=== PATIENT | male | born 1985 | race Caucasian/White ===

== ENCOUNTER 2024-09-24 19:00 | Emergency (ER) | payer OTHER, SELFPAY ==
--- NOTE | 2024-09-24 19:25 | XR_ITS ---
Examination: PA chest single view Technique: Upright PA chest single view Exam date and time: September 24, 2024 1943 hrs. Indications: Low O2 saturation difficulty breathing today. Findings: Mild prominence left ventricle Moderate vascular congestion Suspicious for subtle septal edema at the lung bases No lobar pneumonia Impression: Suspicious for early heart failure
--- NOTE | 2024-09-24 19:26 | EKG_ITS ---
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
--- NOTE | 2024-09-24 19:27 | PD.EDRME ---
Rapid Medical Screening Exam RME Arrival date/time: 09/24/24 19:00 39M with history of psych disorder and alcohol use presents to ED with SI. Patient's father recently committed suicide with a gun. Chief Complaint: Suicidal
[2024-09-24 19:28] VITALS: BP 153/87; PULSE 137; RESP 16; TEMP 37.2; O2SAT 89; BMI 30.2
--- NOTE | 2024-09-24 19:49 | PC.NURSE ---
Pt to room 4 at this time, assumed care of pt.
[2024-09-24 19:51] VITALS: BP 175/122; PULSE 134; RESP 20; O2SAT 96
[2024-09-24 19:52] VITALS: PULSE 120; RESP 20; RESP 95
--- NOTE | 2024-09-24 20:03 | PD.EDSUICD ---
ED Psych RME/HPI General Chief Complaint: Suicidal Stated Complaint: DANGER TO SELF GRAVELY DISABLED Time Seen by Provider: 09/24/24 20:02 Arrival date/time: 09/24/24 19:00 RME / HPI RME / HPI Narrative: 09/24/24 19:00 39M with history of psych disorder and alcohol use presents to ED with SI. Patient's father recently committed suicide with a gun. This section includes all my notes and documentations, including HPI, PE, and ED course. Betito Rodriguez MD HPI: 39-year-old male here to be evaluated with suicidal risk. Patient can't give history due to severe alcohol intoxication. The story is from the who is present. His father killed himself with a gun about a year ago. Ever since, patient hasn't doing well mentally. Drinking heavily. Prior to 09/12/2024, he didn't drink for several weeks. But starting 09/12/2024, he has been drinking heavily daily. In the past few days, reports some minimal oral intake and repeated vomiting. No obvious hematemesis or coffee-ground emesis. No abdominal pain. No homicidal ideation. No hallucinations. ROS: Can't obtain from the patient due to current clinical condition. Physical Exam: General: Alert and severely intoxicated. Eyes: Conjunctivae and lids clear. EOMI. PERRL. ENT: No nasal congestion. Neck: Supple. Heart: Sinus tachycardia noted. Lungs: No respiratory distress. Good air movement. No rhonchi, wheezing, rales. Abdomen: Soft and nontender. Normal bowel sounds. No distension. No rebound or guarding. Legs: No clubbing, cyanosis, edema. Skin: Warm and dry. Neuro: Alert. Cranial Nerves II-XII grossly intact. No peripheral motor deficits. I reviewed all diagnostic test results. My interpretation of the EKG is sinus rhythm with nonspecific ST-T changes. My interpretation of the chest x-ray is no acute findings. Blood tests and urine tests remarkable for Hgb 21.6, LA 2.6, CK 500, and serum alcohol 379. At this point, diagnoses include severe alcohol intoxication and dehydration and rhabdomyolysis and suicidal risk. Treatment here included IV fluid and Zofran and Thiamine and Ativan and Metoprolol. At 0600 on 09/25/24, the care of the patient was transferred to Dr. Davison. Betito Rodriguez MD Related Data Allergies Allergy/AdvReac Type Severity Reaction Status Date / Time No Known Allergies Allergy Verified 09/24/24 19:06 Course Quality Measures none Orders Category Date Time Status 1799 Psychiatric Hold NOW Care 09/25/24 05:30 Ordered EKG (ED ONLY) *Do not use* NOW Care 09/24/24 19:26 Completed Saline [Insert IV] NOW Care 09/24/24 20:10 Completed Straight [In and Out Catheter] X1 Care 09/24/24 20:10 Active EKG (ED Only) Stat Exams 09/24/24 19:26 Draft XR chest 1V portable Stat Exams 09/24/24 19:25 Completed Acetaminophen Stat Lab 09/24/24 19:55 Completed Alcohol, Blood Medical Stat Lab 09/24/24 19:55 Completed Amylase Stat Lab 09/24/24 19:55 Completed B-Type Natriuretic Peptide Stat Lab 09/24/24 19:55 Completed CBC Stat Lab 09/24/24 19:55 Completed Comprehensive Metabolic Panel Stat Lab 09/24/24 19:55 Completed Creatine Kinase Stat Lab 09/24/24 19:55 Completed Drug Screen,Urine Stat Lab 09/24/24 19:26 Ordered Lactate (Lactic Acid) Stat Lab 09/24/24 19:55 Completed Lactic Acid, 3 HR Stat Lab 09/24/24 23:37 Completed Lipase Stat Lab 09/24/24 19:55 Completed Magnesium Stat Lab 09/24/24 19:55 Completed Procalcitonin Stat Lab 09/24/24 19:55 Completed Salicylate Stat Lab 09/24/24 19:55 Completed Troponin I Stat Lab 09/24/24 19:55 Completed Urinalysis Stat Lab 09/24/24 19:26 Ordered LORazepam [Ativan Inj] Med 09/24/24 20:10 Discontinued 2 mg IVP X1 ONE LORazepam [Ativan Inj] Med 09/25/24 00:29 Discontinued 2 mg IVP X1 ONE Metoprolol Tartrate Inj [Lopressor Inj] Med 09/24/24 20:12 Discontinued 5 mg IVP X1 ONE Ondansetron Inj [Zofran Inj] Med 09/24/24 20:10 Discontinued 4 mg IV X1 ONE Sodium Chloride 0.9% 1000 ml [Ns] 1,000 ml Med 09/24/24 20:10 Discontinued IV 999 mls/hr Sodium Chloride 0.9% 1000 ml [Ns] 1,000 ml Med 09/24/24 21:00 Discontinued IV 999 mls/hr Thiamine Inj [Vitamin B-1 Inj] 100 mg Med 09/24/24 20:11 Discontinued Sodium Chloride 0.9% [Ns] 100 ml IV X1 Oxygen Delivery NOW RT 09/24/24 19:27 Active Vital Signs Vital signs: Vital Signs Temperature 99 F 09/24/24 19:28 Pulse Rate 137 H 09/24/24 19:28 Respiratory Rate 16 09/24/24 19:28 Blood Pressure 153/87 H 09/24/24 19:28 Pulse Oximetry (%) 89 L 09/24/24 19:28 Oxygen Delivery Method Room Air 09/24/24 19:28 Psych Patient data External records reviewed:: [facility] previous records Clinical information provided by:: spouse Social determinants that could affect healthcare access:: alcohol use Patient has the following chronic illnesses:: Alcohol abuse How is presenting disease/condition affected by chronic disease/condition?: exacerbated by Evaluation data The following diagnostics were reviewed and interpreted by me:: lab results, radiology exam(s) and EKG tracing(s) (My interpretation of the EKG is: Sinus tachycardia (126 bpm) with nonspecific ST-T changes. Betito Rodriguez MD) Lab and/or radiology exams considered but not ordered:: None Interpretation Summary: Alcohol intoxication and suicide risk Medications / Prescriptions Medications or Prescriptions considered but not ordered:: None Medication administrations:: Medication Administration History Discontinued Medications Sodium Chloride (Ns) 1,000 mls @ 999 mls/hr IV .Q1H1M ONE Stop: 09/24/24 21:10 Last Infusion: 09/24/24 21:23 Dose: Infused Documented By: Admin: 09/24/24 20:21 Dose: 999 mls/hr Documented By: JENNIFER Thiamine HCl 100 mg/ Sodium (Chloride) 101 mls @ 202 mls/hr IV X1 ONE Stop: 09/24/24 20:40 Last Infusion: 09/24/24 20:51 Dose: Infused Documented By: Admin: 09/24/24 20:21 Dose: 202 mls/hr Documented By: JENNIFER Sodium Chloride (Ns) 1,000 mls @ 999 mls/hr IV .Q1H1M ONE Stop: 09/24/24 22:00 Last Infusion: 09/24/24 21:11 Dose: Infused Documented By: Admin: 09/24/24 21:11 Dose: 999 mls/hr Documented By: KG Lorazepam (Lorazepam 2 Mg/Ml Vial) 2 mg IVP X1 ONE Stop: 09/24/24 20:11 Last Admin: 09/24/24 20:22 Dose: 2 mg Documented By: GB Lorazepam (Lorazepam 2 Mg/Ml Vial) 2 mg IVP X1 ONE Stop: 09/25/24 00:30 Last Admin: 09/25/24 00:50 Dose: 2 mg Documented By: GB Metoprolol Tartrate (Metoprolol Tartrate Inj 1 Mg/Ml Amp 5 Ml) 5 mg IVP X1 ONE Stop: 09/24/24 20:13 Last Admin: 09/24/24 20:22 Dose: 5 mg Documented By: GB Ondansetron HCl (Ondansetron Inj 2 Mg/Ml Inj 2 Ml) 4 mg IV X1 ONE; Protocol Stop: 09/24/24 20:11 Last Admin: 09/24/24 20:21 Dose: 4 mg Documented By: GB See chart Consultations Consultation(s) initiated? (list below): No Diagnosis Psych Differential Diagnosis: acute psychosis, suicidal ideation, bipolar disorder, depression, drug-induced psychotic disorder and acute anxiety Most likely diagnosis given after review of the tests above:: Alcohol intoxication and suicidal Admission Indicated Admission indicated?: not indicated Explain why admission is indicated or not indicated:: Psychiatric evaluation pending Admission Request Was there a request for admission?: No Disposition Plan Disposition Plan: other (specify) (Psychiatric evaluation pending) Discharge Plan Prescriptions/Referrals Referrals: Imer Leonardo MD [Primary Care Provider] - In 1 week Problem List Clinical Impression: Suicide risk, Alcohol intoxication Patient/Caregiver Discharge Instructions Print Language: Slovenian
[2024-09-24 20:10] LABS: Lactate (Lactic Acid) 3.1 mMol/L (0.4-2.0)
[2024-09-24 20:12] LABS: Basophils % (Auto) 0 % (0-2.5); Eosinophils % (Auto) 1 % (0-10); Immature Granulocytes % (Auto) 0 % (0-0); Lymphocytes % (Auto) 31 % (10-50); Mean Corpuscular Volume 82 fL (80-100); Monocytes # (Auto) 0.6 Thou/mm3 (0.0-0.8); Monocytes % (Auto) 7 % (0-12); Nucleated Red Blood Cell % 0 /100 WBC (0)
[2024-09-24 20:13] LABS: Hematocrit 58.1 % (41.0-53.0); Immature Granulocytes Auto 0.03 Thou/mm3 (0.00-0.00); Lymphocytes # (Auto) 2.6 Thou/mm3 (1.0-4.8); Mean Corpuscular HGB Conc 37.2 g/dl (31.0-37.0); Mean Corpuscular Hemoglobin 30.5 pg (25.0-35.0); Neutrophils % (Auto) 61 % (37-80); Platelet Count 267 Thou/mm3 (140-440); RDW Standard Deviation 37.7 fL (35.1-43.9); Red Blood Count 7.08 Miln/mm3 (4.50-5.90); White Blood Count 8.2 Thou/mm3 (3.8-10.6)
[2024-09-24 20:16] LABS: Hemoglobin 21.6 g/dL (13.5-16.0)
[2024-09-24] MEDS: ONDANSETRON INJ 2 MG/ML INJ 2 ML 4 MG IV (20:21)
[2024-09-24] MEDS: THIAMINE INJ 100 MG in SODIUM CHLORIDE 0.9% 100 ML 202 MG IV (20:21)
[2024-09-24] MEDS: SODIUM CHLORIDE 0.9% 1000 ML 1,000 ML 999 ML IV ×2 (20:21→21:11)
[2024-09-24 20:22] VITALS: BP 173/127; PULSE 117
[2024-09-24] MEDS: LORazepam 2 MG/ML VIAL IVP (20:22)
[2024-09-24] MEDS: METOPROLOL TARTRATE INJ 1 MG/ML AMP 5 ML 5 MG IVP (20:22)
--- NOTE | 2024-09-24 20:25 | PC.NURSE ---
Pt in room on [facility] with at the bedside. poultry inseminator Alex informed of chief complaint of suicidal ideation with plan and access to method at home.
[2024-09-24 20:40] LABS: B-Type Natriuretic Peptide < 20 pg/mL (0-100)
[2024-09-24 20:45] LABS: Acetaminophen < 2.0 mcg/mL (10.0-20.0); Alanine Aminotransferase 54 U/L (10-49); Albumin, Serum 5.2 gm/dL (3.5-5.0); Albumin/Globulin Ratio 1.9 (1.2-2.2); Alcohol, Blood Medical 379.3 mg/dL (0-10.0); Alkaline Phosphatase 50 U/L (46-116); Anion Gap 13 (7-16); Aspartate Amino Transferase 47 U/L (0-34); BUN/Creatinine Ratio 8 Ratio (12-20); Bilirubin,Total 0.7 mg/dL (0.3-1.2); Blood Urea Nitrogen 11 mg/dL (9-23); Calcium 9.2 mg/dL (8.3-10.6); Calcium (Corrected) 9.2 mg/dL (8.5-10.1); Carbon Dioxide 24.5 mMol/L (20.0-31.0); Chloride 103 mMol/L (98-107); Creatine Kinase 500 U/L (34-171); Creatinine (Component) 1.3 mg/dL (0.6-1.3); Estimated Creatinine Clearance 85.9 mL/min (>60); Globulin 2.8 gm/dL (2.3-3.5); Glucose 152 mg/dL (74-106); Osmolality,Calculated 281 (275-295); Potassium 4.4 mMol/L (3.4-5.1); Procalcitonin 0.09 ng/ml (0.0-0.49); Salicylate < 3.0 mg/dL; Sodium 140 mMol/L (136-145); Troponin I < 0.020 ng/mL (0.0-0.045); eGFR > 60 See Note
[2024-09-24 20:49] VITALS: BP 157/105; PULSE 87; RESP 20; O2SAT 93
[2024-09-24 20:55] LABS: Amylase 111 U/L (30-118); Lipase 68 U/L (12-53); Magnesium 2.4 mg/dL (1.6-2.6)
[2024-09-24 20:59] VITALS: PULSE 85; RESP 16; RESP 92
--- NOTE | 2024-09-24 21:58 | PC.NURSE ---
Pt moved to room 7 at this time.
[2024-09-24 23:06] LABS: Reflex Lactate? Y
[2024-09-24 23:45] LABS: Lactic Acid, 3 HR 2.6 mMol/L (0.4-2.0)
[2024-09-25] VITALS (8 sets, daily range): BP systolic 124–168; BP diastolic 79–106; PULSE 85–105; RESP 17–19; TEMP 36.3–37.2; O2SAT 95–97
[2024-09-25] MEDS: LORazepam 2 MG/ML VIAL IVP ×2 (00:50→20:33)
[2024-09-25 05:41] LABS: Collection Type, Urine Clean Catch; Squamous Epithelial Cell,Urine 0 /hpf (0-5)
[2024-09-25 06:19] LABS: Bilirubin,Urine Negative (Negative); Blood,Urine Negative (Negative); Clarity,Urine Clear (Clear/Hazy); Color,Urine Yellow (Lt Yel-Yel); Glucose, Urine Trace (Negative); Ketones,Urine Negative (Negative); Leukocyte Esterase,Urine Negative (Negative); Nitrite,Urine Negative (Negative); Protein,Urine 2+ (Neg - Trace); RBC,Urine 4 /hpf (0-3); Specific Gravity,Urine 1.025 (1.001-1.035); Urobilinogen,Urine Negative mg/dL (0.0-1.0); WBC,Urine 1 /hpf (0-5)
[2024-09-25 06:26] LABS: Amphetamine/Methamp Scrn,U Negative (Negative); Barbiturate Screen,Urine Negative (Negative); Benzodiazepines Screen,Urine Negative (Negative); Benzoylecgonine Screen, Ur Negative (Negative); Fentanyl Screen,Urine Negative (Negative); Opiate Screen,Urine Negative (Negative); THC Screen,Urine Negative (Negative)
[2024-09-25] MEDS: ONDANSETRON INJ 2 MG/ML INJ 2 ML 8 MG IV (07:37)
--- NOTE | 2024-09-25 07:43 | PC.NURSE ---
PATIENT WITH COMPLAINT OF NAUSEA AND VOMITING. PATIENT ASKING CONTINUAL TO CALL . SALES MARKETING DIRECTOR AWARE OF PATIENT REQUESTS. PATIENT OUT OF ROOM NOT FOLLOWING RE-DIRECTION AT THIS TIME. NURSE WAS ABLE TO GET PATIENT TO RETURN TO ROOM AND REST. SITTER AT BEDSIDE.
[2024-09-25] MEDS: HALOPERIDOL LACT INJ 5 MG/ML VIAL IM (08:05)
--- NOTE | 2024-09-25 08:09 | PD.EDADDENDU ---
Emergency Room Addendum Addendum Narrative: Care is transitioned from Dr. Rodriguez. Patient is intoxicated. Awaits medical clearance. 1045 Patient is alert and oriented and normally conversive. From my standpoint, patient is stable and cleared for psychiatric placement or evaluation. He did not endorse any SI to me.
--- NOTE | 2024-09-25 09:54 | PC.CC ---
Addendum entered by Escobar Dwyer II 09/25/24 18:00: Clinical inquiry created and sent to the following [facility] facilities: [facility]-Call to pts to provide update, that pt will remain on 5150 hold. Pts in agreement with plan. 1504-ASW spoke with Lety, housekeeper cleaning cooking with [facility], packet to be re-faxed. 1641-Call from Dr. Hernández with [facility], per Dr. Hernández he does not believe pt meets criteria for 5150 hold, as he was inebriated when he made the suicidal statements. Dr. Hernández states that pt will need full psychiatric evaluation, with detailed information regarding pts mental status. [facility] reason for need for transfer for stabilization in appropriate setting. [facility] Dr[facility] Hern[facility]dez [facility]. ASW met with pt at bedside to. ASW informed pt that he is on 5150 hold due to DTS and GD. ASW explained that due to concerns for his safety decision was made to detain pt. Pt expressed understanding. Pt requesting to speak with his . 1709-ASW made contact with pts Clementina, who is in agreement to speak with pt at this time. Original Note: Pt Lobo Erwin is a 39 yr old male to ED for pt being extremely intoxicated and making SI statements. From staff documentation pt has access to fire arms with intent to harm himself. From provider documentation pts father committed suicide 1 yr ago. Pt has been in decline since with excessive drinking. At this time pt is pending medical clearance, still presenting intoxicated. Plan will be for ASW to make contact with pts to collect collateral information.
[2024-09-25] MEDS: PANTOPRAZOLE 40 MG TABLET PO ×2 (13:35→19:41)
--- NOTE | 2024-09-25 15:51 | PC.CC ---
Pt Lobo Erwin is a 39 yr old male to ED for heavy alcohol intoxication and suicidal statements. Pt placed on 1798. Pts scored 20/25 on Montcalm Scale and positive tox screen for alcohol. ASW met with pt at bedside, introducing self and role in pt care. ASW explained reason for encounter. Pt expressed understanding and is agreeable to meet with ASW at this time. Pt presents with flat affect, appeared disengaged, by asking ASW to speak with his about assessment questions and providing minimal information. Pt failed to make any eye contact for duration of encounter. Pt speaks in clear even tone. Pt confirms drinking heavily prior to arrival in ED. Pt states that the suicidal comments he made were because of his heavy intoxication. Per pt at this time he is not endorsing SI/HI. Pt is denying any A/V hallucinations. Pt endorses hx of bipolar disorder, dx at [facility], unknown when. Pt reports having been placed on several medications, but states none of them helped and had too many side effects. At this time pt states it has been sometime since he has seen a therapist/psychiatrist. Pt reports hx of heavy drinking, which has increased over the last few weeks. Pt reports having a lot of situational stressors in his life. Pt reports his mother from terminal cancer, with his father committing suicide just over a year ago. 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 Pt reports time of sobriety before and after his mothers passing and for a while after his fathers passing. Pt reports he does not feel his drinking is in relation to his grief and loss. Pt reports having access to firearms, but denies SI at this time. Pt denies ever being on 5150 hold and no previous psychiatric hospitalization. Pt has given verbal consent for ASW to speak with his . Collateral: 1138-ASW made contact with pts Clementina Erwin [phone]. ASW introduced self and role in pt care. Pts agreeable to speak with ASW at this time. Pts confirmed events that occurred leading to pt coming to ED for evaluation. Pts expressed concerns that pts drinking has gotten out of control. Pts states that pt was able to maintain sobriety for a period of time after the passing of his mother and even after pts fathers suicide. Per pts pt began excessively drinking around Day. Per pts , she feels pts current mental status could be a combination of his parents deaths and existing hx of mental health issues. Per pts pt has not been in MH services in over 2 months. She was recently able to secure a new psychologist for pt with appointment pending for 10/11/24. Pts expressed possible manipulative behaviors when pt is in treatment, as pt denies having any concerns. Pts did express concerns that pt has access to fire arms, and is the only one with combination access to three gun safes in their home. Pts expressed concerns of being able to keep pt safe, due to his growing dependence on alcohol. Per pts she has been working to get pt engaged in services for AOD concerns. [facility] contacted [facility] pt declined, starting he did not have the time. Pts expressed concerns for pts safety. 1204-Call to Lolly Fajardo, pt to be placed on hold at this time. ASW spoke with ED attending to inform him that pt will be kept on [address] Davison in agreement.
[2024-09-25] MEDS: LORazepam 0.5 MG TABLET 2 MG PO (18:05)
--- NOTE | 2024-09-25 18:24 | PC.NURSE ---
PATIENT WITH INCREASE IN ANXIETY, PATIENT COMPLAINT OF SHAKING, REQUESTING MEDICATION. SYSTEMS DESIGNER SPOKE WITH PROVIDER FOR MEDICATION. PATIENT ON PHONE WITH APPROVED BY SYSTEMS DESIGNER. PATIENT CONTINUES TO STAY CALM. SITTER REMAINS AT BEDSIDE.
--- NOTE | 2024-09-25 20:00 | PC.NURSE ---
Pt pacing back and forth in room, stated, I fell anxious Dr. Rodriguez made aware, new order given to this nurse
[2024-09-26] VITALS (9 sets, daily range): BP systolic 139–177; BP diastolic 80–106; PULSE 70–97; RESP 16–19; TEMP 36.3–37.1; O2SAT 95–99
--- NOTE | 2024-09-26 03:00 | PC.NURSE ---
Pt clam at this time, easily to wake, not c/o of any discomfort, Pt given water. [address]
--- NOTE | 2024-09-26 04:00 | PC.NURSE ---
Pt taken to bathroom, back to room without incident. Pt not c/o of any discomfort. 1on[address].
--- NOTE | 2024-09-26 05:20 | PD.EDADDENDU ---
Emergency Room Addendum Addendum Narrative: I took over the care from Dr. Davison at 6 PM on 09/25/2024. During my watch, the patient remained stable. Waiting for placement for suicide risk. At 6 AM on 09/26/2024, the care of the patient was transferred to Dr Avina. Betito Rodriguez MD
--- NOTE | 2024-09-26 06:34 | EDNOTE_ITS ---
Emergency Room Addendum <Gwendolyn Escobar - Last Filed: 09/26/24 10:43> Addendum Narrative: [address] Rodriguez, the previous shift emergency physician. Past medical, surgical, social and family history reviewed. Vitals and home medications reviewed. Results and treatment plan discussed. The patient was placed in ED observation care at 0600 09/26/2024, pending placement to [facility] facility Please refer to the emergency department record for history and examination.? While in ED observation the pt will have access to water, food, and personal hygiene. If the pt takes home medication(s), they will be continued in ED observation. <Juany Greer - Last Filed: 09/26/24 17:27> Addendum Narrative: [address] Rodriguez, the previous shift emergency physician. Past medical, surgical, social and family history reviewed. Vitals and home medications reviewed. Results and treatment plan discussed. The patient was placed in ED observation care at 0600 09/26/2024, pending placement to [facility] facility Please refer to the emergency department record for history and examination.? While in ED observation the pt will have access to water, food, and personal hygiene. If the pt takes home medication(s), they will be continued in ED observation. 1800: Patient was signed out to Dr. Rodriguez. Past medical, surgical, social and fa zhanna history reviewed. Vitals and home medications reviewed. Results and treatment plan discussed. They will assume the care of the patient at this time and will follow the patient, pending psychiatric placement.
--- NOTE | 2024-09-26 07:23 | PC.NURSE ---
PT RESTING IN BED IN NO APPARENT DISTRESS. RESPIRATIONS EVEN AND UNLABORED. SITTER AT BEDSIDE
--- NOTE | 2024-09-26 08:00 | PC.CC ---
Pt Lobo Erwin is a 39 yr old male on 5150 hold for DTS.GD, and is pending placement at this time. Updated clinical packet forwarded to the following LPS facilities for review and potential acceptance. Overnight no calls received from LPS facilities. [facility] [place] [facility]
[2024-09-26] MEDS: PANTOPRAZOLE 40 MG TABLET PO ×2 (09:50→20:48)
--- NOTE | 2024-09-26 12:17 | PC.NURSE ---
pt requesting something for anxiety. informed Dr Avina. new orders received
[2024-09-26] MEDS: DiphenhydrAMINE 25 MG CAPSULE 50 MG PO (12:27)
--- NOTE | 2024-09-26 20:42 | PC.NURSE ---
Pt requesting something to help him sleep. Dr. Rodriguez notified.
[2024-09-26] MEDS: LORazepam 2 MG/ML VIAL IVP (20:49)
--- NOTE | 2024-09-26 22:41 | PC.NURSE ---
Received phone call from Rosa turner, spoke to Augustine. Updated information given. He will speak to MD to see if they can accept the patient.
--- NOTE | 2024-09-27 00:41 | PC.NURSE ---
SING FROM [facility] CALLED AND THIS PT IS NOT ACCEPTED TO THEIR FACILITY DUE TO LAB LEVELS. PRIMARY RN JANESSA MADE AWARE.
[2024-09-27 05:57] VITALS: BP 124/80; PULSE 87; RESP 17; TEMP 36.9; O2SAT 96
--- NOTE | 2024-09-27 06:14 | PD.EDADDENDU ---
Emergency Room Addendum Addendum Narrative: I took over the care from Dr. Agustin at 6 PM on 09/26/2024. He remained stable during my watch. He was given Ativan to help him sleep. At 6 AM on 09/27/2024, the care of the patient was transferred to Dr Avina. Betito Rodriguez MD
--- NOTE | 2024-09-27 07:14 | PD.EDADDENDU ---
Emergency Room Addendum <Gwendolyn Escobar - Last Filed: 09/27/24 13:08> Addendum Narrative: [address] Rodriguez, the previous shift emergency physician. Past medical, surgical, social and family history reviewed. Vitals and home medications reviewed. Results and treatment plan discussed. The patient was placed in ED observation care at 0600 09/27/2024, pending LPS facility placement. Please refer to the emergency department record for history and examination.? While in ED observation the pt will have access to water, food, and personal hygiene. If the pt takes home medication(s), they will be continued in ED observation. One facility was requesting repeat lab work. The polythenia was a result of the patient being drunk and dehydrated. Today the patient has been eating and drinking. Repeat HGB today improved from 21 to 18. <Juany Greer - Last Filed: 09/27/24 17:44> Addendum Narrative: [address] Rodriguez, the previous shift emergency physician. Past medical, surgical, social and family history reviewed. Vitals and home medications reviewed. Results and treatment plan discussed. The patient was placed in ED observation care at 0600 09/27/2024, pending LPS facility placement. Please refer to the emergency department record for history and examination.? While in ED observation the pt will have access to water, food, and personal hygiene. If the pt takes home medication(s), they will be continued in ED observation. One facility was requesting repeat lab work. The polythenia was a result of the patient being drunk and dehydrated. Today the patient has been eating and drinking. Repeat HGB today improved from 21 to 18. 1800: Patient was signed out to Dr. Randle. Past medical, surgical, social and family history reviewed. Vitals and home medications reviewed. Results and treatment plan discussed. They will assume the care of the patient at this time and will follow the patient, pending psychiatric placement.
--- NOTE | 2024-09-27 07:32 | PC.CC ---
Addendum entered by Escobar Dwyer II 09/27/24 18:17: ASW requested updated labs CBC/CMP to aide in placement. Updated clinical packet has been faxed to address list 7 and 9 for hard printer. Updated packet uploaded to [email or web address]. [facility] remains in queue [facility] remains in queue [facility]-no answer [facility]-in queue [facility]-no beds, in queue [place]-in queue [facility]-in queue [facility]-no bed [facility]-no answer ASW met with pt at bedside to provide update. Pt informed that pf hold expiring with plan to re-evaluate. Pt expressed desire to return home. Pt states he has an appointment scheduled with a [facility] psychologist for 10/11/24 for intake assessment. Pt has expressed interest to engage in AOD services with [facility]. ASW provided pt with books to read at this time. 1826-ASW spoke with pts to provide update and current status on placement efforts. Per pts she has been in communication with in [place] and program is willing to accept pt. Per pts pt has expressed to her his desire to engage in AOD services. Pts states that she will await SS call for next step in process. Original Note: Pt Lobo Erwin is a 39 yr old male to ED for SI. Pt was heavily intoxicated and was stating that he wanted to blow his head off. Pt does have access to firearms. Pt reports hx of bipolar disorder-pending evaluation with new psychologist on 10/11/2024. Pt is a a daily drinker, which per pt and his has increased in recent weeks to pt consuming heavy alcohol. At this time pt is pending placement in LPS facility. At this time no LPS facility has accepted. In meeting with pt on 09/26/24, pt is requesting re-evaluation.
[2024-09-27] MEDS: PANTOPRAZOLE 40 MG TABLET PO ×2 (07:55→20:25)
--- NOTE | 2024-09-27 08:46 | PC.NURSE ---
Sister called to speak with patient. Patient was provided with a phone to communicate with her.
[2024-09-27 10:22] VITALS: BP 147/104; PULSE 99; RESP 18; TEMP 36.7; O2SAT 96
[2024-09-27] MEDS: DiphenhydrAMINE 25 MG CAPSULE 50 MG PO (11:11)
[2024-09-27 11:33] LABS: Basophils % (Auto) 1 % (0-2.5); Eosinophils # (Auto) 0.1 Thou/mm3 (0.0-0.5); Eosinophils % (Auto) 2 % (0-10); Hematocrit 50.2 % (41.0-53.0); Immature Granulocytes % (Auto) 0 % (0-0); Immature Granulocytes Auto 0.01 Thou/mm3 (0.00-0.00); Lymphocytes # (Auto) 1.5 Thou/mm3 (1.0-4.8); Lymphocytes % (Auto) 27 % (10-50); Mean Corpuscular HGB Conc 35.9 g/dl (31.0-37.0); Mean Corpuscular Hemoglobin 30.5 pg (25.0-35.0); Mean Corpuscular Volume 85 fL (80-100); Monocytes # (Auto) 0.7 Thou/mm3 (0.0-0.8); Monocytes % (Auto) 13 % (0-12); Neutrophils # (Auto) 3.1 Thou/mm3 (1.8-7.7); Neutrophils % (Auto) 57 % (37-80); Nucleated Red Blood Cell % 0 /100 WBC (0); Platelet Count 160 Thou/mm3 (140-440); RDW Standard Deviation 37.7 fL (35.1-43.9); White Blood Count 5.4 Thou/mm3 (3.8-10.6)
[2024-09-27 11:49] LABS: Alanine Aminotransferase 73 U/L (10-49); Albumin, Serum 4.7 gm/dL (3.5-5.0); Albumin/Globulin Ratio 1.9 (1.2-2.2); Alkaline Phosphatase 51 U/L (46-116); Anion Gap 7 (7-16); Aspartate Amino Transferase 75 U/L (0-34); BUN/Creatinine Ratio 12 Ratio (12-20); Bilirubin,Total 1.1 mg/dL (0.3-1.2); Blood Urea Nitrogen 15 mg/dL (9-23); Calcium 9.6 mg/dL (8.3-10.6); Calcium (Corrected) 9.6 mg/dL (8.5-10.1); Carbon Dioxide 25.7 mMol/L (20.0-31.0); Chloride 102 mMol/L (98-107); Creatinine (Component) 1.3 mg/dL (0.6-1.3); Estimated Creatinine Clearance 85.9 mL/min (>60); Globulin 2.5 gm/dL (2.3-3.5); Glucose 95 mg/dL (74-106); Osmolality,Calculated 270 (275-295); Potassium 4.2 mMol/L (3.4-5.1); Sodium 135 mMol/L (136-145); Total Protein 7.2 gm/dL (5.7-8.2); eGFR > 60 See Note
[2024-09-27 12:06] VITALS: BP 147/103; PULSE 86; RESP 18; TEMP 36.7; O2SAT 97
[2024-09-27 16:04] VITALS: BP 145/103; PULSE 93; RESP 18; TEMP 36.6; O2SAT 95
[2024-09-27 18:28] VITALS: BP 146/102; PULSE 99; RESP 18; TEMP 36.9; O2SAT 96
--- NOTE | 2024-09-27 19:45 | PC.NURSE ---
PT GIVEN OPPORTUNITY TO TAKE SHOWER, TOILETRIES PROVIDED. 1:1 SITTER ACCOMPANIED PT. PT RETURNED TO ROOM WITH OUT ANY INCIDENT. PT CALM AND COOPERATIVE.
[2024-09-27 21:56] VITALS: BP 146/100; PULSE 90; RESP 17; TEMP 37.1; O2SAT 96
--- NOTE | 2024-09-27 21:58 | PD.EDADDENDU ---
Emergency Room Addendum Addendum Narrative: 1800: Care assumed from Dr. Avina, the previous shift emergency physician. Past medical, surgical, social and family history reviewed. Vitals and home medications reviewed. Results and treatment plan discussed. I will assume the care of the patient at this time and will follow the patient, pending 5150 psychiatric placement. Please refer to the emergency department record for history and examination. Patient was placed in observation for treatment and monitoring of psychiatric symptoms, at 1800 09/27/2024. Symptoms consist of suicidal ideation and depression. Treatment plan includes psychiatric consult, reassessments, and possible placement into psychiatric facility. The patient had access and provided personal hygiene, shower, food, water, and daily medications. 0600: Care signed out to the next oncoming provider. Past medical, surgical, social and family history reviewed. Vitals and home medications reviewed. Results and treatment plan discussed. They will assume the care of the patient at this time and will follow the patient, pending 5150 psychiatric placement. At this time, observation has ended.
--- NOTE | 2024-09-27 23:50 | PC.NURSE ---
PT AWAKE AND REQUESTING SOMETHING FOR HEADACHE AND SLEEPING AID. DR LUONG INFORMED. NEW ORDERS GIVEN.
[2024-09-28] MEDS: IBUPROFEN TAB 600 MG TABLET PO (00:28)
[2024-09-28] MEDS: ACETAMINOPHEN 500 MG TABLET 1000 MG PO (00:29)
[2024-09-28] MEDS: DiphenhydrAMINE 25 MG CAPSULE 50 MG PO (00:29)
[2024-09-28 03:01] VITALS: BP 142/87; PULSE 85; RESP 18; TEMP 36.9; O2SAT 98
[2024-09-28 06:17] VITALS: BP 131/91; PULSE 91; RESP 18; TEMP 37.2; O2SAT 98
--- NOTE | 2024-09-28 06:18 | EDNOTE_ITS ---
Emergency Room Addendum Addendum Narrative: [address] Randle, the previous shift emergency physician. Past medical, surgical, social and family history reviewed. Vitals and home medications reviewed. Results and treatment plan discussed. The patient was placed in ED observation care at 0600 09/28/2024, pending [facility] facility placement. Please refer to the emergency department record for history and examination.? While in ED observation the pt will have access to water, food, and personal hygiene. If the pt takes home medication(s), they will be continued in ED observation. 0845: Patient was reassessed by ASW today. Report they were able to safety plan with patient and . Report he has an appointment scheduled at the [place] 10/11/2024. Observation care ended at this time. Patient remains clinically stable throughout the emergency department visit. Strict return precautions were outlined. Patient was discharged in stable condition.
--- NOTE | 2024-09-28 08:30 | PC.NURSE ---
breakfast tray provided.
[2024-09-28] MEDS: PANTOPRAZOLE 40 MG TABLET PO (08:34)
--- NOTE | 2024-09-28 08:53 | PC.CC ---
Patient was placed on a 5150-GDA on 09/25/2024 at 0523 by ASW, Escobar Dwyer. As patient?s hold on 09/28/2024 at 0523, LEE Menendez completed mental re-evaluation of patient. Azra met with patient [id number] to complete assessment. ASW introduced self, role, and reason for assessment. ASW disclosed limits of confidentiality as well. Patient appeared alert and oriented to self, place, and situation. Patient?s mood appeared euthymic; his behavior appeared was pleasant and engaging. Patient?s thought process was linear and organized. No signs of delusions, paranoid or V/h. Patient reports he does not remember the suicidal comments he had or ideations as he was heavily under the influence of alcohol. The patient stated, ?my told me this was the most under the influence she has ever seen me.? Patient reports he has struggle since the of his parents. However, continues to have a strong support system which includes his , Clementina, sister, Palak, and eldest step-daughter Kassy. Per the patient, he has been diagnosed with Bipolar Disorder, but is not connected to mental health as his ?psychologist retired.? The patient currently is denying suicidal and homicidal ideations. The patient denies visual and auditory hallucinations. The patient has not history with being placed on a 5150-hold and reported this was his first time. The patient is open to safety planning and provided consent for his , Clementina to be contacted. The patient reported he has an appointment with the [facility] Psychologist on 10/11/2024 and plans on going to in-patient treatment for substance abuse. ASW made contact via telephone with patient?s Clementina . The following information is collateral information from patient?s this is the first time patient had made suicidal statements but has been struggling with substance use ?alcohol.? Patient?s reported she is willing to safety plan. The patient?s stated she had already removed the ?handle to the safe.? Patient has an appointment with [facility] on 10/11/2024 and can get reconnected with the [facility] to go into an inpatient substance use treatment center through [place]. However, the patient?s reports the patient has to be the one to call [facility]. Upon clinical consultation with EJ, Lolly Fajardo the patient no longer meets criteria for 5150-hold. The patient is able and willing to safety plan. The safety plan is that patient?s will provide extra supervision for the next 72 hours, remove all access sharps and fire arms from the home, lock up medication, patient to attend his appointment on 10/11/2024 with the [facility] Psychologist, and follow-up with [facility]-in patient substance abuse treatment.
[2024-09-28 09:10] VITALS: BP 121/71; PULSE 90; RESP 18; TEMP 36.6; O2SAT 99
--- NOTE | 2024-09-28 09:20 | PC.NURSE ---
in to assess pt. pt resting quietly at this time without any complaints. Orders received and initiated. 1-1 sitter at bedside. Plan of care ongoing.
== END 2024-09-28 09:50 | disposition home or self-care (01) ==
PROVIDERS: Emergency Medicine; Physician Assistant; Emergency Provider Emergency Medicine; PCP Family Medicine
DX: R45.851 Suicidal ideations (principal); F10.129 Alcohol abuse with intoxication, unspecified; E86.0 Dehydration; M62.82 Rhabdomyolysis; R00.0 Tachycardia, unspecified; Y90.8 Blood alcohol level of 240 mg/100 ml or more
CPT/HCPCS: 36415; 71045; 80053; 80307; 80320; 80329; 81001; 82150; 82550; 83605; 83690; 83735; 83880; 84145; 84484; 85025; 93005; 96127; 96365; 96372; 99285; J1630; J2060; J2405; J3411; J3490; J7030; J7050; A9270; G0480

== ENCOUNTER 2024-11-13 16:49 | Emergency (ER) | payer OTHER, SELFPAY ==
[2024-11-13 17:10] VITALS: BP 150/112; PULSE 118; RESP 19; TEMP 36.5; O2SAT 96
--- NOTE | 2024-11-13 17:13 | PC.NURSE ---
Patient from [facility] and taken to room 17 with sister Palak at bedside, patient intoxicated with slurred speech, patient states he has thought about killing himself, however, states he is not going to because he is afraid to . Patient also states he has 5 guns . Patient talking about his ex and drinking. Per sister Palak, patient stated to her that he has a gun and he was gonna shoot himself in the head. Patient denying SI and crying intermittently. Dr. Quintana at bedside speaking with patient and sister, patient crying stating and repeating I don't touch guns per sister states their father committed suicide approx. 2 years ago. Awaiting further orders from Dr. Quintana
--- NOTE | 2024-11-13 17:20 | EDNOTE_ITS ---
ED Psych RME/HPI General Chief Complaint: Suicidal Stated Complaint: SUICIDAL, INTOXICATED Time Seen by Provider: 11/13/24 17:09 Arrival date/time: 11/13/24 16:49 RME / HPI RME / HPI Narrative: 39 year old male with a history of alcohol abuse who presents to the ED, brought in by his sister for evaluation of suicidal ideation. The sister reports that, over the past week, the patient has been consuming approximately half a gallon of Bacardi per day. Today, he consumed around 250mL of vodka. She further reports that the patient has expressed thoughts of wanting to shoot himself in the head. In the ED, the patient confirms these suicidal thoughts but denies any homicidal ideation. He does not report any other complaints at this time. Related Data Home Medications ?Medication ?Instructions ?Recorded ?Confirmed omeprazole 40 mg capsule,delayed 40 mg PO BID 09/25/24 09/25/24 release Allergies Allergy/AdvReac Type Severity Reaction Status Date / Time No Known Allergies Allergy Verified 11/13/24 16:53 Review of Systems Review of Systems Narrative Review of Systems: GEN: No fever, no chills, no weight loss EYES: No discharge, no visual changes, no pain HEENT: No ear pain, no congestion, no sore throat PULM: No shortness of breath, no cough, no congestion CV: No chest pain, no dyspnea on exertion, no palpitations GI: No nausea, no vomiting, no diarrhea, no pain, no constipation : No frequency, no urgency and no dysuria MUSC/SKEL No joint pain, no back pain SKIN: No rash PSYCH: +suicidal ideation, +no homicidal ideation, no hallucinations HEME/LYMPH: No easy bleeding or bruising tendencies NEURO: No weakness, no headache Past Medical History Past Medical History CARDIAC: Negative Congestive Heart Failure RESPIRATORY: Negative Chronic Obstructive Pulmonary Disease (COPD) GASTROINTESTINAL: Positive Gastrointestinal Disorders and Gastroesophageal Reflux Disease GENITOURINARY: Negative Renal Disease ENDOCRINE: Negative Diabetes Mellitus Type 1 or Diabetes Mellitus Type 2 PSYCHO/SOCIAL: Positive Depression Social History SMOKING STATUS: Never smoker ED Exam Narrative Physical exam: GENERAL APPEARANCE: Well hydrated, well nourished, talkative, intoxicated, during examination patient suddenyl burst into tears. VITALS: All vitals were reviewed and the pulse ox is 96% on room air which is normal according to my interpretation. HEENT: Normocephalic, atramatic, EOMI, EACs are patent. There is no bulge or retraction. Throat without erythema or exudate. Moist oromucosa. No jaundice NECK: Supple, no JVD or bruits. CARDIOVASCULAR: Heart regular without S3-S4 or murmur. No rubs or gallops. LUNGS/CHEST: Clear to auscultation bilaterally. No rales, rhonchi, or wheezing. Normal inspection. ABDOMEN: Soft, nontender, with normal bowel sounds. No pulsatile masses. No rebound, rigidity, or guarding. No incarcerated hernia. Normal inspection and palpation. EXTREMITIES: Normal inspection and palpation. No edema, clubbing, or cyanosis. Intact CSM SKIN: Warm and dry without rashes. Normal inspection. MUSCULOSKELETAL: Normal inspection. No gross deformity, full ROM all extremities NEURO: Alert and oriented x3. Cranial nerves II through XII grossly intact. There are no other motor or sensory deficits noted. PSYCHIATRIC: Patient suddenly burst into tears, appears depressed, intoxicated. Positive suicidal ideation, no homicidal ideation. Course Quality Measures none Orders Category Date Time Status Miscellaneous Nursing Order NOW Care 11/13/24 17:31 Active Acetaminophen Stat Lab 11/13/24 17:30 Received Alcohol, Blood Medical Stat Lab 11/13/24 17:30 Received CBC Stat Lab 11/13/24 17:30 Received CMP [Comprehensive Metabolic Panel] Stat Lab 11/13/24 17:30 Received Drug Screen,Urine Stat Lab 11/13/24 17:21 Ordered Salicylate Stat Lab 11/13/24 17:30 Received Sodium Chloride 0.9% 1000 ml [Ns] 1,000 ml Med 11/13/24 17:27 Active Multivitamin Inj [Infuvite Inj] 10 ml Thiamine Inj [Vitamin B-1 Inj] 1 mg Folic Acid Inj 1 mg Magnesium Sulf 50% Inj (gm) 1 gm IV 999 mls/hr Vital Signs Vital signs: Vital Signs Temperature 97.7 F 11/13/24 17:10 Pulse Rate 118 H 11/13/24 17:10 Respiratory Rate 19 11/13/24 17:10 Blood Pressure 150/112 H 11/13/24 17:10 Pulse Oximetry (%) 96 11/13/24 17:10 Oxygen Delivery Method Room Air 11/13/24 17:10 Psych MDM Narrative MDM Narrative:: I am ordering for blood test urine test and IV banana bag. I have also asked outreach and education social worker isiah to contact and report to Burt Ledezma regarding the patient's ownership of guns at home. 6 PM, pending lab results, pending banana bag and pending further evaluation and treatment, the patient is stable and is signed out to Critical care time is approximately 35 minutes excluding any procedure. The high probability of sudden, clinically significant deterioration in the patient?s condition required the highest level of my preparedness to intervene urgently. The services I provided to this patient were to treat and/or prevent clinically significant deterioration. Services included the following: chart data review, reviewing nursing notes and/or old charts, documentation time, systems consultant collaboration regarding findings and treatment options, medication orders and management, direct patient care, vital sign assessments and ordering, inte rpreting and reviewing diagnostic studies and lab tests. Aggregate critical care time includes only time during which I was engaged in work directly related to the patient?s care, as described above, whether at bedside or elsewhere in the Emergency Department. It did not include time spent performing other reported procedures or the services of residents, students, nurses or physician assistants. Patient data External records reviewed:: [facility] previous records (I reviewed ED visit 09/24/2024 through 09/28/2024 for suicidal ideation, alcohol intoxication. ) Clinical information provided by:: patient and family (sister- adds to hpi ) Social determinants that could affect healthcare access:: alcohol use Patient has the following chronic illnesses:: Alcohol abuse How is presenting disease/condition affected by chronic disease/condition?: exacerbated by Evaluation data The following diagnostics were reviewed and interpreted by me:: lab results Lab and/or radiology exams considered but not ordered:: None Interpretation Summary: See above Medications / Prescriptions Medications or Prescriptions considered but not ordered:: None Medication administrations:: Medication Administration History Multivitamins/Minerals 10 ml/Thiamine HCl 1 mg/ Folic Acid 1 mg/ Magnesium Sulfate 1 gm/Sodium Chloride 1,012.21 mls @ 999 mls/hr IV .Q1H1M ONE Stop: 11/13/24 18:27 See above Consultations Consultation(s) initiated? (list below): No Diagnosis Psych Differential Diagnosis: acute psychosis, suicidal ideation, bipolar disorder, depression, drug-induced psychotic disorder and acute anxiety Most likely diagnosis given after review of the tests above:: Alcohol intoxication Depression Suicidal idea Admission Indicated Admission indicated?: not indicated Explain why admission is indicated or not indicated:: Patient signed out to Dr. Avina pending remainder of work-up. Admission Request Was there a request for admission?: No Disposition Plan Disposition Plan: other (specify) (Patient signed out pending remainder of work- up. ) Discharge Plan Plan Disposition Comment: Stable at signout Prescriptions/Referrals Prescriptions/Med Rec: No Action omeprazole 40 mg capsule,delayed release(DR/EC) 40 mg PO BID Patient Comments: TAKE 1 CAPSULE BY MOUTH TWICE A DAY Referrals: No Primary/Family,Physician [Primary Care Provider] - In 1 week Problem List Clinical Impression: Suicidal ideation, Depression, Alcohol intoxication Patient/Caregiver Discharge Instructions Print Language: Georgian
[2024-11-13 17:22] VITALS: BMI 30.8
[2024-11-13 17:38] LABS: Basophils # (Auto) 0.1 Thou/mm3 (0.0-0.2); Basophils % (Auto) 1 % (0-2.5); Eosinophils # (Auto) 0.1 Thou/mm3 (0.0-0.5); Eosinophils % (Auto) 1 % (0-10); Hematocrit 52.9 % (41.0-53.0); Hemoglobin 19.8 g/dL (13.5-16.0); Immature Granulocytes % (Auto) 0 % (0-0); Immature Granulocytes Auto 0.03 Thou/mm3 (0.00-0.00); Lymphocytes # (Auto) 2.8 Thou/mm3 (1.0-4.8); Lymphocytes % (Auto) 28 % (10-50); Mean Corpuscular HGB Conc 37.4 g/dl (31.0-37.0); Mean Corpuscular Hemoglobin 30.5 pg (25.0-35.0); Mean Corpuscular Volume 82 fL (80-100); Monocytes % (Auto) 10 % (0-12); Neutrophils % (Auto) 60 % (37-80); Nucleated Red Blood Cell % 0 /100 WBC (0); Platelet Count 199 Thou/mm3 (140-440); RDW Standard Deviation 36.1 fL (35.1-43.9); Red Blood Count 6.49 Miln/mm3 (4.50-5.90)
[2024-11-13 18:04] LABS: Acetaminophen < 2.0 mcg/mL (10.0-20.0); Alanine Aminotransferase 251 U/L (10-49); Albumin, Serum 4.7 gm/dL (3.5-5.0); Albumin/Globulin Ratio 1.9 (1.2-2.2); Alkaline Phosphatase 54 U/L (46-116); Anion Gap 18 (7-16); Aspartate Amino Transferase 194 U/L (0-34); BUN/Creatinine Ratio 14 Ratio (12-20); Bilirubin,Total 1.4 mg/dL (0.3-1.2); Blood Urea Nitrogen 20 mg/dL (9-23); Calcium 8.5 mg/dL (8.3-10.6); Calcium (Corrected) 8.5 mg/dL (8.5-10.1); Carbon Dioxide 20.9 mMol/L (20.0-31.0); Chloride 98 mMol/L (98-107); Creatinine (Component) 1.4 mg/dL (0.6-1.3); Globulin 2.5 gm/dL (2.3-3.5); Glucose 101 mg/dL (74-106); Osmolality,Calculated 276 (275-295); Potassium 3.8 mMol/L (3.4-5.1); Salicylate < 3.0 mg/dL; Sodium 137 mMol/L (136-145); Total Protein 7.2 gm/dL (5.7-8.2); eGFR > 60 See Note
--- NOTE | 2024-11-13 18:12 | PC.NURSE ---
Patient given urinal and encouraged to provider urine sample.
[2024-11-13 18:13] LABS: Alcohol, Blood Medical 324.1 mg/dL (0-10.0)
--- NOTE | 2024-11-13 18:21 | PC.NURSE ---
Called [place] [employer] spoke with Vicki in dispatch, per Dr. Quintana's request. Per Dr. Quintana he wanted [employer] to be aware, patient suicidal and has guns in his home, Dr. Quintana not requesting visit by [employer], however, would like them to be aware of patients access to guns in home.
--- NOTE | 2024-11-13 18:26 | PD.EDADDENDU ---
Emergency Room Addendum <Juany Greer - Last Filed: 11/13/24 18:28> Addendum Narrative: 1800: Care assumed from Dr. Quintana, the previous shift emergency physician. Past medical, surgical, social and family history reviewed. Vitals and home medications reviewed. I will assume the care of the patient at this time, pending banana bag, further evaluation and treatment and final disposition. Please refer to the emergency department record for history and examination from initial visit.? Physical exam by me shows patient under no acute distress at this time. <Gerardo Avina MD - Last Filed: 11/14/24 05:34> Addendum Narrative: 1800: Care assumed from Dr. Quintana, the previous shift emergency physician. Past medical, surgical, social and family history reviewed. Vitals and home medications reviewed. I will assume the care of the patient at this time, pending banana bag, further evaluation and treatment and final disposition. Please refer to the emergency department record for history and examination from initial visit.? Physical exam by me shows patient under no acute distress at this time. Patient had no events on my encounter. 0600: Patient signed out to oncoming provider, Dr. Quintana, pending crisis team assessment and final disposition
[2024-11-13 18:29] VITALS: BP 170/105; PULSE 112; RESP 16; O2SAT 93
[2024-11-13] MEDS: THIAMINE IV (18:29)
[2024-11-13] MEDS: [UNRECOGNIZED DRUG - OTHER] IV (18:29)
[2024-11-13] MEDS: FOLIC ACID IV (18:29)
[2024-11-13] MEDS: MULTIVITAMIN IV (18:29)
[2024-11-13 19:08] VITALS: BP 165/95; PULSE 112; RESP 22; O2SAT 95
[2024-11-13] MEDS: ONDANSETRON INJ 2 MG/ML INJ 2 ML 4 MG IV (19:27)
[2024-11-13] MEDS: DiphenhydrAMINE ELIX 25 MG/10 ML UDC 50 MG PO (20:02)
[2024-11-13 20:30] LABS: Amphetamine/Methamp Scrn,U Negative (Negative); Barbiturate Screen,Urine Negative (Negative); Benzodiazepines Screen,Urine Positive (Negative); Benzoylecgonine Screen, Ur Negative (Negative); Fentanyl Screen,Urine Negative (Negative); Opiate Screen,Urine Negative (Negative); THC Screen,Urine Positive (Negative)
[2024-11-14] VITALS (10 sets, daily range): BP systolic 130–165; BP diastolic 86–107; PULSE 70–122; RESP 15–19; TEMP 36.6–37.1; O2SAT 93–96
[2024-11-14] MEDS: ONDANSETRON INJ 2 MG/ML INJ 2 ML 4 MG IV ×2 (01:45→15:24)
--- NOTE | 2024-11-14 06:55 | PC.NURSE ---
REPORT RECEIVED AT THIS TIME; PER REPORT. PT COMING IN FOR ALCOHOL INTOXICATION AND SUICIDAL IDEATION. PT DENYING SI AT THIS TIME, BUT PER REPORT, PT STATED. 'I'M SO DRUNK I WANNA KILL MYSELF.' PT NOW STATING THAT HE DOESN'T REMEMBER SAYING ANY OF THAT AND THAT HIS JUST SAID THAT SO HE CAN BE BROUGHT TO THE HOSPITAL. PT DENYING SI WITH ME. PT NAUSEOUS AT THIS TIME. PT LAYING IN BED COMFORTABLY WITH NO ACUTE DISTRESS NOTED.
[2024-11-14] MEDS: SODIUM CHLORIDE 0.9% 1000 ML 1,000 ML 999 ML IV (07:21)
[2024-11-14 07:59] LABS: Alcohol, Blood Medical < 10.0 mg/dL (0-10.0)
--- NOTE | 2024-11-14 08:34 | PC.CC ---
Pt Lobo Erwin is a 39 yr old male, brought to ED by his sister for heavy intoxication and reports that pt making statements that he wants to shoot himself in the head. Pt evaluated on 09/25/24 for similar circumstances and placed on 5150 hold for DTS/GD. Pt remained in ED for duration of hold with no LPS facility accepting, pt re-evaluated with safety plan. At this visit pt scored 19/25 on [place] screening reporting yes to, wishes you were . Pt toxicology positive for Benzodiazepines, THC and alcohol level at 324.1, with lab redraw and pt now with alcohol level less than 10. Pt with hx of bi-polar disorder connected to [facility]. At this time pt is medically cleared for evaluation.
[2024-11-14] MEDS: LORazepam 2 MG/ML VIAL IVP (15:34)
[2024-11-14] MEDS: chlordiazePOXIDE HCl 25 MG CAPSULE PO (16:45)
[2024-11-14] MEDS: PROCHLORPERAZINE INJ 5 MG/ML VIAL 2 ML IV (16:46)
[2024-11-14] MEDS: SODIUM CHLORIDE 0.9% 250 ML 250 ML 999 ML IV (16:46)
--- NOTE | 2024-11-14 17:33 | EDNOTE_ITS ---
Emergency Room Addendum Addendum Narrative: The patient was signed out to me from at 6:00 this morning pending mental health evaluation. The repeated blood alcohol level was negative. Therefore the patient was medically clear. 5:34 PM, I spoke to and discussed with Escobar, psychotherapist social worker/mental health draw machine operator. He is still working on evaluation of the patient. 6 PM, still pending mental health evaluation, the patient is stable and is now signed out to Diagnosis: Alcohol intoxication Suicidal ideation
--- NOTE | 2024-11-14 18:16 | PD.EDADDENDU ---
Emergency Room Addendum Addendum Narrative: 1800: Care assumed from Dr. Quintana, the previous shift emergency physician. Past medical, surgical, social and family history reviewed. Vitals and home medications reviewed. Results and treatment plan discussed. I will assume the care of the patient at this time and will follow the patient, pending crisis evaluation. Please refer to the emergency department record for history and examination from initial visit. The patient was placed in ED observation care at 11/14/24 at 1800 hours. The patient was placed in ED observation care because of pending psychiatric evaluation. The patients past medical history, social history, and family history were reviewed. The plan of care will include serial examinations. 0600: Care signed out to Dr. Mathews (emergency physician). Past medical, surgical, social and family history reviewed. Vitals and home medications reviewed. Results and treatment plan discussed. They will assume the care of the patient at this time and will follow the patient, pending crisis evaluation. At this time, observation has ended.
[2024-11-15 00:57] VITALS: BP 148/70; PULSE 89; RESP 18; TEMP 36.6; O2SAT 95
[2024-11-15] MEDS: LORazepam 2 MG/ML VIAL 1 MG IVP (01:39)
[2024-11-15 06:10] VITALS: BP 132/85; PULSE 58; RESP 17; TEMP 36.6; O2SAT 94
[2024-11-15 07:41] VITALS: BP 137/93; PULSE 68; RESP 18; TEMP 36.7; O2SAT 97
--- NOTE | 2024-11-15 08:10 | PC.CC ---
Addendum entered by Escobar Dwyer II 11/15/24 19:22: Pt inquiry faxed and uploaded to [employer]. 1158-Call from Daniele with [facility] for RN report. 1208-ASW spoke with Daniele with [facility], pt accepted by Dr. Dai, Unit I, requested ETA 1430. 1230-Call to Dispatch transport ETA set for 1400. 1312-Call to pts with update. Original Note: Pt Lobo Erwin is a 39 yr old male to ED for intoxication and suicidal ideation. At this time pt has been medically cleared for eval.
--- NOTE | 2024-11-15 09:57 | PD.EDADDENDU ---
Emergency Room Addendum Addendum Narrative: [address] Avina, the previous shift emergency physician. Past medical, surgical, social and family history reviewed. Vitals and home medications reviewed. Results and treatment plan discussed. The patient was placed in ED observation care at 0600 11/15/2024, pending mental health evaluation. Please refer to the emergency department record for history and examination.? While in ED observation the pt will have access to water, food, and personal hygiene. If the pt takes home medication(s), they will be continued in ED observation. 1010: Patient has been evaluated by ASW. Reports patient failed to comply with safety plan during his previous ED visit for suicidal ideation. Patient will be placed on a 5150 hold at this time pending placement. 1210: Patient has been accepted by Dr. Dai at [facility]. 1505: EMS here to transport patient.
[2024-11-15 10:35] VITALS: BP 135/113; PULSE 100; RESP 18; TEMP 36.3; O2SAT 95
[2024-11-15 11:57] VITALS: BP 123/96; PULSE 90; RESP 16; TEMP 37; O2SAT 95
--- NOTE | 2024-11-15 12:04 | PC.NURSE ---
Talked to Dan[facility] Noyola RN for report, they will accept after 4850. Accepting Dr. Dai. CN aware
--- NOTE | 2024-11-15 19:15 | PC.CC ---
Pt Lobo Erwin is a 39 yr old male brought to ED by his sister, for heavy intoxication and for pt making suicidal statements. Pt toxicology screening positive for THC, benzodiazepines and alcohol. Pt [place] Screening, noted to be high risk a with pt reporting he wished he were . ASW met with pt at bedside, introducing self and role in pt care. ASW explained reason for encounter. At time of encounter pt is noted to be anxious. Pt focused on his bills, his marriage, his job and his children. Pt speaks in clear even tone. Pt presents with flat affect. Pt keeps minimal direct eye contact. At this time pt denies any SI, per pt he does not recall stating that he wants to harm himself or others. Pt denies any previous hospitalization. Pt confirms dx of Bi-polar disorder. At this time pt is not engaged in traditional services. Pt stating his job and family life have been a barrier to access services. ASW assessed pts compliance with safety plan at last encounter. Per pt all [facility] to [facility] services. Per pt he feels he is ready to ?change.? Pt states still having access to firearms in his home. Pt informed ASW that his has moved out of the home, and stated she will not return until pt seeks treatment. Collateral ASW spoke with pts Clementina Erwin [phone]. ASW introduced self and role in pt care. Pts confirmed pt has been experiencing more depressive episodes. Per pts pt refused to comply with safety plan from ED visit 09/24-09/28/24. Per pts pt refused to comply with [facility] Per pts pt still has access to his firearms in the home. Pt has been drinking excessively. Per pts she has moved out of their home, and at this time is unable to safety plan due to concerns for pts safety. Pts pt needs immediate and emergent services. Case consulted with EJ Mantilla-pt will be detained on 5150 hold due to non-compliance with initial safety plan, and lack of viable safety plan. ED Attending and bedside RN updated.
== END 2024-11-15 15:05 ==
PROVIDERS: Emergency Medicine; Emergency Provider Emergency Medicine
DX: R45.851 Suicidal ideations (principal); F32.A Depression, unspecified; F10.129 Alcohol abuse with intoxication, unspecified
CPT/HCPCS: 36415; 80053; 80307; 80320; 80329; 85025; 90839; 93005; 96127; 96361; 96365; 96366; 99291; J0780; J2060; J2405; J3411; J3475; J3490; J7030; J7050; A9270; G0480

== ENCOUNTER 2024-11-28 13:14 | Emergency (ER) | payer OTHER, SELFPAY ==
[2024-11-28 13:33] VITALS: BP 116/75; PULSE 76; RESP 18; TEMP 36.8; O2SAT 97; BMI 29.4
--- NOTE | 2024-11-28 13:49 | XR_ITS ---
Examination: Duplex scan of the upper extremity, unilateral right Date and time of exam: November 28, 2024 1557 hours INDICATIONS: Right wrist redness swelling and pain beginning one week ago Technique: Duplex scan of the extremity veins using B-mode/grayscale imaging and Doppler spectral analysis and color flow Attention is directed to internal echogenicity, compression and augmentation involving these veins, color flow assessment, spectral analysis Findings: Major deep venous structures in the extremity demonstrate normal course and caliber. There is no evidence of deep vein thrombosis. Normal color flow and spectral analysis Positive for occlusive thrombus in the superficial right cephalic vein Impression: Negative for DVT.. Positive for occlusive thrombus in the superficial right cephalic vein
--- NOTE | 2024-11-28 15:13 | PD.EDSKIN ---
ED Skin Abcess FB-RME/HPI General Chief complaint: Skin/Abscess/Foreign Body Stated complaint: REDNESS, WARMTH, SWELLING TO RIGHT WRIST Time Seen by Provider: 11/28/24 13:18 Arrival date/time: 11/28/24 13:14 39-year-old male presents emergency department today that he recently had an IV in his right arm patient reports pain to that area patient ports he spoke with his physician who referred him to the ER to rule out DVT Limitations: no limitations Related Data Home Medications ?Medication ?Instructions ?Recorded ?Confirmed omeprazole 40 mg capsule,delayed 40 mg PO BID 09/25/24 09/25/24 release Previous Rx's ?Medication ?Instructions ?Recorded ibuprofen 800 mg tablet 800 mg PO TID PRN pain #30 tabs 11/28/24 Allergies Allergy/AdvReac Type Severity Reaction Status Date / Time No Known Allergies Allergy Verified 11/13/24 16:53 Review of Systems Review of Systems Systems Reviewed: All systems reviewed, normal except as documented Constitutional Constitutional: Reports system reviewed and no additional complaints, except as documented, Denies fever(s) and Denies headache(s) Eyes Eyes: Reports system reviewed and no additional complaints, except as documented and Denies blurry vision ENT Ears, Nose, Mouth, and Throat: Reports system reviewed and no additional complaints, except as documented, Denies headache(s), Denies nasal congestion and Denies nasal discharge Cardiovascular Cardiovascular: Reports system reviewed and no additional complaints, except as documented, Denies chest pain and Denies dyspnea Respiratory Respiratory: Reports system reviewed and no additional complaints, except as documented, Denies chest congestion, Denies cough and Denies dyspnea Gastrointestinal Gastrointestinal: Reports system reviewed and no additional complaints, except as documented and Denies abdominal pain Musculoskeletal Musculoskeletal: Reports system reviewed and no additional complaints, except as documented and Reports other (Wrist pain right) Integumentary/Breasts Skin/Breast: Reports system reviewed and no additional complaints, except as documented and Denies rash Neurologic Neurologic: Reports system reviewed and no additional complaints, except as documented, Reports as per HPI and Denies headache(s) Past Medical History Past Medical History CARDIAC: Negative Congestive Heart Failure RESPIRATORY: Negative Chronic Obstructive Pulmonary Disease (COPD) GASTROINTESTINAL: Positive Gastrointestinal Disorders and Gastroesophageal Reflux Disease GENITOURINARY: Negative Renal Disease ENDOCRINE: Negative Diabetes Mellitus Type 1 or Diabetes Mellitus Type 2 PSYCHO/SOCIAL: Positive Depression Social History SMOKING STATUS: Never smoker ED Exam General Limitations: Present no limitations General appearance: Present alert and in no apparent distress Head Head exam: Present atraumatic, normocephalic and normal inspection Eye Eye exam: Present normal appearance, PERRL and EOMI; Absent conjunctival injection ENT ENT exam: Present normal exam, normal oropharynx and mucous membranes moist Neck Neck exam: Present normal inspection, full ROM and trachea midline Chest Chest inspection: Present normal inspection and symmetric chest wall rise Respiratory Respiratory exam: Present normal lung sounds bilaterally Cardiovascular Cardiovascular exam: Present regular rate, normal rhythm and normal heart sounds Abdominal Exam Abdominal exam: Present soft and normal bowel sounds Extremities Exam Extremities exam: Present full ROM, tenderness and normal capillary refill Back Exam Back exam: Present normal inspection and full ROM Neurological Exam Neurological exam: Present alert, oriented X3, CN II-XII intact, normal gait and reflexes normal; Absent motor sensory deficit Psychiatric Psychiatric exam: Present normal affect and normal mood Skin Skin exam: Present warm, dry and other (Right arm pain) Course Quality Measures none Orders Category Date Time Status US venous doppler UE RT Stat Exams 11/28/24 13:49 Completed Vital Signs Vital signs: Vital Signs Temperature 98.3 F 11/28/24 13:33 Pulse Rate 76 11/28/24 13:33 Respiratory Rate 18 11/28/24 13:33 Blood Pressure 116/75 11/28/24 13:33 Pulse Oximetry (%) 97 11/28/24 13:33 Oxygen Delivery Method Room Air 11/28/24 13:33 O2 saturation 97% on room air with normal limits Skin / Abscess / Foreign Body MDM Narrative MDM Narrative:: 39-year-old male presents emergency department today that he recently had an IV in his right arm patient reports pain to that area patient ports he spoke with his physician who referred him to the ER to rule out DVT On exam patient well-appearing patient does not appear toxic and in no acute distress On exam patient has no redness or warmth no significant swelling I do not suspect patient has DVT probably has thrombophlebitis may be superficial clot Consultation: I spoke with Dr pollock reports as this is a superficial clot this does not require anticoagulation Patient discharged home in no distress to follow-up with primary care doctor in the next 24 to 48 hours and for any worsening symptoms to return to the ER immediately Patient data External records reviewed:: [facility] previous records Clinical information provided by:: patient Social determinants that could affect healthcare access:: none Patient has the following chronic illnesses:: See history How is presenting disease/condition affected by chronic disease/condition?: exacerbated by Evaluation data The following diagnostics were reviewed and interpreted by me:: radiology exam(s) Lab and/or radiology exams considered but not ordered:: Radiology obtain Interpretation Summary: Reviewed by me Medications / Prescriptions Medications or Prescriptions considered but not ordered:: Given Medication administrations:: Given Consultations Consultation(s) initiated? (list below): No Diagnosis Skin/Abscess Differential Diagnosis: abscess of skin or subcutaneous tissue, cellulitis, contact dermatitis and other (Superficial thrombophlebitis) Most likely diagnosis given after review of the tests above:: Superficial thrombophlebitis Admission Indicated Admission indicated?: not indicated Admission Request Was there a request for admission?: No Disposition Plan Disposition Plan: Discharge Discharge Attestation Discharge Attestation: The patient and all family members were given an opportunity to ask questions and understood the discharge instructions. Discharge instructions specifically effects, indications for sooner follow up or return to the emergency department, and the expected course of current diagnosis. Patient condition: Stable Discharge Plan Plan Patient Disposition: HOME (Self Care) Disposition Comment: Stable Prescriptions/Referrals Prescriptions/Med Rec: New ibuprofen 800 mg tablet 800 mg PO TID PRN (Reason: pain) Qty: 30 0RF No Action omeprazole 40 mg capsule,delayed release(DR/EC) 40 mg PO BID Patient Comments: TAKE 1 CAPSULE BY MOUTH TWICE A DAY Referrals: Fernando Chowdary MD [Primary Care Provider] - In 1 week Problem List Clinical Impression: Thrombosis of right cephalic vein Patient/Caregiver Discharge Instructions Additional Instructions: Please follow up with your primary care doctor in the next 24-48hrs for any worsening symptoms return here immediately Print Language: Mongolian Stand Alone Forms: Sapna Award Info., Work/School Release, Patient Portal Info Letter GISELLE/ANSON Supervising Physician PA/ANSON Supervising Physician: Dr pollock
== END 2024-11-28 15:24 | disposition home or self-care (01) ==
PROVIDERS: Emergency Provider Emergency Medicine; PCP Dentist
DX: I82.611 Acute embolism and thrombosis of superficial veins of right upper extremity (principal)
CPT/HCPCS: 93971; 99284

== ENCOUNTER 2025-04-13 14:35 | Emergency (ER) | payer OTHER, SELFPAY ==
[2025-04-13 14:35] VITALS: BMI 29.4
--- NOTE | 2025-04-13 15:30 | XR_ITS ---
Examination: CT abdomen and pelvis without contrast. Coronal 3-D reconstructions. Sagittal 2-D reconstructions. Date and time of exam:April 13, 2025 1541 hours Comparison August 02, 2006 INDICATIONS: Left lower abdominal pain nausea and vomiting today CTDI: vol (mGy): 7.77 DLP: (mGycm): 494 Technique: Axial images of the abdomen have been obtained, 3 mm slice thickness Intravenous contrast material has not been administered. Low dose protocols were performed. One or more of the following dose reduction techniques were used; automated exposure control, adjustment of the mA and/or KV according to patient size, use of iterative reconstruction technique. Findings: No focal liver or splenic lesion No gallstones No pancreatic or adrenal mass No renal or ureteral calculi, no hydronephrosis Aorta normal size Normal appendix No bowel obstruction No bladder mass No prostatomegaly IMPRESSION: No acute process in the abdomen or pelvis
--- NOTE | 2025-04-13 15:31 | PD.EDABDPN ---
ED Abdominal Pain RME/HPI General Chief Complaint: Abdominal Pain Stated complaint: L) ABD PAIN, /, STARTED YESTERDAY Time seen by provider: 04/13/25 14:58 Arrival date/time: 04/13/25 14:35 RME / HPI RME / HPI narrative: 40-year-old male patient with no past medical history, came in for evaluation regarding left lower abdominal pain. Onset of symptoms since yesterday, comes and goes, early today get worst severity 10 out of 10. Patient denies any fever denies any vomiting denies any other complaints. Denies any diarrhea or constipation. Currently patient is not having any pain. Related Data Home Medications ?Medication ?Instructions ?Recorded ?Confirmed omeprazole 40 mg capsule,delayed 40 mg PO BID 09/25/24 09/25/24 release Previous Rx's ?Medication ?Instructions ?Recorded ibuprofen 800 mg tablet 800 mg PO TID PRN pain #30 tabs 11/28/24 Allergies Allergy/AdvReac Type Severity Reaction Status Date / Time No Known Allergies Allergy Verified 04/13/25 14:37 Review of Systems Review of Systems Narrative Review of Systems: Review of system reviewed and within normal limits except mentioned in HPI ED Exam Narrative Physical exam: VITAL SIGNS: Reviewed. GENERAL APPEARANCE: Alert and interactive, follows commands, no acute distress, HEAD AND FACE: Non-traumatic. ENT: PERRL, pink conjunctivitis, eyelid no trauma, Mucous membrane moist. NECK: Supple, nontender, no nuchal rigidity. CHEST: No tenderness, no crepitus, no paradoxical movement, no retractions. LUNGS: Clear, well ventilated, symmetric, no rales, no wheezing, no ronchi, no stridor, good breath sounds bilaterally. HEART: Regular rate, regular rhythm, no murmur, no gallops. ABDOMEN: Soft, positive bowel sounds, nondistended, no guarding, none tenderness, no rebound, no masses, RECTAL: Deferred. GENITAL: Deferred. NEUROLOGICAL: Gross motor function intact sensory function intact, Appropriate for age. MUSCULOSKELETAL: low back nontender, full range of motion. EXTREMITIES: Nontender, full range of motion. SKIN: Color pink, dry, no rash, no lacerations, no abrasions, no contusions. LYMPHATICS: Deferred. Course Quality Measures none Orders Category Date Time Status CT abdomen pelvis wo con Stat Exams 04/13/25 15:30 Completed CBC [CBC] Stat Lab 04/13/25 16:20 Completed CMP [Comprehensive Metabolic Panel] Stat Lab 04/13/25 16:20 Completed Lipase Stat Lab 04/13/25 16:20 Completed UA, C/S IF [Urinalysis, C/S if Indicated] Stat Lab 04/13/25 15:53 Completed Vital Signs Vital signs: Vital Signs Temperature 98.1 F 04/13/25 15:34 Pulse Rate 62 04/13/25 15:34 Respiratory Rate 16 04/13/25 15:34 Blood Pressure 113/68 04/13/25 15:34 Pulse Oximetry (%) 98 04/13/25 15:34 Oxygen Delivery Method Room Air 04/13/25 15:34 Abdominal Pain MDM [facility] Narrative [facility] Narrative:: 40-year-old male patient with no past medical history, came in for evaluation regarding left lower abdominal pain. Onset of symptoms since yesterday, comes and goes, early today get worst severity 10 out of 10. Patient denies any fever denies any vomiting denies any other complaints. Denies any diarrhea or constipation. Currently patient is not having any pain. CT scan of the abdomen pelvis Unremarkable. Patient's workup including urinalysis came back normal. No recurrence of abdominal pain noted in the emergency room for more than 2 hours while patient in the emergency room. Patient appears nontoxic and hemodynamically stable .Decision to discharge the patient. The patient/family was given an opportunity to ask questions and understood their discharge instructions. Discharge instructions specifically included follow up provider and time frame, current and/or new medications and possible side effects, indications for sooner follow up or return to the emergency department, and the expected course of current diagnosis. Patient reports feeling better as well and giving evidence of significant clinical improvement, I believe patient is now a candidate for discharge. Patient data External records reviewed:: None Clinical information provided by:: patient Social determinants that could affect healthcare access:: none Patient has the following chronic illnesses:: None How is presenting disease/condition affected by chronic disease/condition?: no chronic disease Evaluation data The following diagnostics were reviewed and interpreted by me:: lab results and radiology exam(s) Lab and/or radiology exams considered but not ordered:: None Interpretation Summary: See results MDM Medications / Prescriptions Medications or Prescriptions considered but not ordered:: None Medication administrations:: none Consultations Consultation(s) initiated? (list below): No Diagnosis Differential diagnosis abdominal pain: abdominal pain, calculus of kidney and constipation Most likely diagnosis given after review of the tests above:: Abdominal pain Admission Indicated Admission indicated?: not indicated Admission Request Was there a request for admission?: No Disposition Plan Disposition Plan: Discharge Discharge Attestation Discharge Attestation: The patient and all family members were given an opportunity to ask questions and understood the discharge instructions. Discharge instructions specifically effects, indications for sooner follow up or return to the emergency department, and the expected course of current diagnosis. Patient condition: Stable Discharge Plan Plan Patient Disposition: HOME (Self Care) Discharge Disposition comment: Stable Prescriptions/Referrals Prescriptions/Med Rec: No Action omeprazole 40 mg capsule,delayed release(DR/EC) 40 mg PO BID Patient Comments: TAKE 1 CAPSULE BY MOUTH TWICE A DAY ibuprofen 800 mg tablet 800 mg PO TID PRN (Reason: pain) Qty: 30 0RF Referrals: No Primary/Family,Physician [Primary Care Provider] - In 1 week Problem List Clinical Impression: Abdominal pain Patient/Caregiver Discharge Instructions Discharge Activity: activity as tolerated Education Materials: Abdominal Pain Additional Instructions: Thank you for the opportunity for serving you today. You are stable for discharged . You are advised to: Follow-up with your PCP in 1 to 2 days Return to ED for worsening of symptoms Increase oral fluids Take [id number] Tylenol or Motrin as needed for pain Print Language: Croatian Stand Alone Forms: Sapna Award Info., Patient Portal Info Letter
[2025-04-13 15:34] VITALS: BP 113/68; PULSE 62; RESP 16; TEMP 36.7; O2SAT 98
[2025-04-13 16:12] LABS: Collection Type, Urine Clean Catch; Squamous Epithelial Cell,Urine 0 /hpf (0-5)
[2025-04-13 16:20] LABS: Bilirubin,Urine Negative (Negative); Blood,Urine Negative (Negative); Clarity,Urine Clear (Clear/Hazy); Color,Urine Colorless (Lt Yel-Yel); Culture Indicated,Urine Not Indicated; Glucose, Urine Negative (Negative); Ketones,Urine Negative (Negative); Leukocyte Esterase,Urine Negative (Negative); Nitrite,Urine Negative (Negative); PH,Urine 6.5 (5.0-7.0); Protein,Urine Negative (Neg - Trace); RBC,Urine 3 /hpf (0-3); Specific Gravity,Urine 1.009 (1.001-1.035); Urobilinogen,Urine Negative mg/dL (0.0-1.0); WBC,Urine 1 /hpf (0-5)
[2025-04-13 16:34] LABS: Basophils % (Auto) 1 % (0-2.5); Eosinophils # (Auto) 0.1 Thou/mm3 (0.0-0.5); Eosinophils % (Auto) 2 % (0-10); Hematocrit 46.2 % (41.0-53.0); Hemoglobin 16.6 g/dL (13.5-16.0); Immature Granulocytes % (Auto) 0 % (0-0); Immature Granulocytes Auto 0.01 Thou/mm3 (0.00-0.00); Lymphocytes # (Auto) 1.6 Thou/mm3 (1.0-4.8); Lymphocytes % (Auto) 20 % (10-50); Mean Corpuscular HGB Conc 35.9 g/dl (31.0-37.0); Mean Corpuscular Volume 84 fL (80-100); Monocytes # (Auto) 0.6 Thou/mm3 (0.0-0.8); Monocytes % (Auto) 8 % (0-12); Neutrophils # (Auto) 5.6 Thou/mm3 (1.8-7.7); Neutrophils % (Auto) 70 % (37-80); Nucleated Red Blood Cell % 0 /100 WBC (0); Platelet Count 182 Thou/mm3 (140-440); RDW Standard Deviation 37.7 fL (35.1-43.9); Red Blood Count 5.53 Miln/mm3 (4.50-5.90)
[2025-04-13 16:52] LABS: Alanine Aminotransferase 27 U/L (10-49); Albumin, Serum 4.5 gm/dL (3.5-5.0); Albumin/Globulin Ratio 2.3 (1.2-2.2); Alkaline Phosphatase 44 U/L (46-116); Anion Gap 7 (7-16); Aspartate Amino Transferase 23 U/L (0-34); BUN/Creatinine Ratio 12 Ratio (12-20); Bilirubin,Total 0.8 mg/dL (0.3-1.2); Blood Urea Nitrogen 16 mg/dL (9-23); Calcium 8.9 mg/dL (8.3-10.6); Calcium (Corrected) 8.9 mg/dL (8.5-10.1); Carbon Dioxide 28.3 mMol/L (20.0-31.0); Chloride 105 mMol/L (98-107); Creatinine (Component) 1.3 mg/dL (0.6-1.3); Estimated Creatinine Clearance 86.5 mL/min (>60); Glucose 114 mg/dL (74-106); Lipase 43 U/L (12-53); Osmolality,Calculated 281 (275-295); Sodium 140 mMol/L (136-145); Total Protein 6.5 gm/dL (5.7-8.2); eGFR > 60 See Note
== END 2025-04-13 17:39 | disposition home or self-care (01) ==
PROVIDERS: Nurse Practitioner Family; Emergency Provider Emergency Medicine
DX: R10.32 Left lower quadrant pain (principal)
CPT/HCPCS: 36415; 74176; 80053; 81001; 83690; 85025; 99284

== ENCOUNTER 2025-04-23 12:43 | Emergency (ER) | payer OTHER, SELFPAY ==
[2025-04-23 12:43] VITALS: BMI 29.4
--- NOTE | 2025-04-23 12:56 | EKG_ITS ---
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
[2025-04-23 12:57] VITALS: BP 159/80; PULSE 107; RESP 18; TEMP 36.7; O2SAT 96
--- NOTE | 2025-04-23 13:39 | XR_ITS ---
Examination: PA lateral chest 2 views Technique: Upright PA lateral chest 2 views Date and time: April 23, 2025 1409 hrs. Comparison September 24, 2024 Indications: Tachycardia difficulty breathing beginning 4 days ago. Findings: Minimal prominence left ventricle. No lobar pneumonia or pulmonary edema. Intact osseous structures Impression: No lobar pneumonia or pulmonary edema
--- NOTE | 2025-04-23 13:39 | EDRME_ITS ---
Rapid Medical Screening Exam RME Arrival date/time: 04/23/25 12:43 This is a 40-year-old male that comes into the emergency room with complaints of chest pain. Patient states that randomly his heart rate goes high. Patient states the only way to stop his heart rate from going high is drinking alcohol. Patient states he has been drinking about 15 beers a day. Patient states he is not an alcoholic but he has been doing this for the past 4 days. Patient's last drink was this morning. Patient states he has been self treating at home with alcohol when his heart rate goes up. Patient reports that he does have anxiety and he usually sees the ME for his medical care. Patient states that he wants help to get off the alcohol. But he thinks there is something going on with his heart. I spoke to him at length and he wants to stop drinking. I offered him to see the social service liaison but he thinks that seeing the social service liaison means that were going to make him a [id number]. I let him know this is not the case. Patient is not describing homicidal suicidal ideations. Patient was just seen here a couple days ago for abdominal pain. I have greeted and performed a focused initial assessment of this patient. Initial appropriate labs ordered at this time. A comprehensive ED assessment and evaluation of the patient and analysis of all test and completion of medical decision making process will be conducted by additional ED provider. Chief Complaint: Arrhythmia/Palpitations Time Seen by Provider: 04/23/25 12:50 Vital signs: Vital Signs Temperature 98.0 F 04/23/25 12:57 Pulse Rate 107 H 04/23/25 12:57 Respiratory Rate 18 04/23/25 12:57 Blood Pressure 159/80 H 04/23/25 12:57 Pulse Oximetry (%) 96 04/23/25 12:57 Oxygen Delivery Method Room Air 04/23/25 12:57
[2025-04-23 14:01] LABS: Basophils % (Auto) 1 % (0-2.5); Eosinophils # (Auto) 0.1 Thou/mm3 (0.0-0.5); Eosinophils % (Auto) 2 % (0-10); Hematocrit 51.1 % (41.0-53.0); Hemoglobin 18.5 g/dL (13.5-16.0); Immature Granulocytes % (Auto) 1 % (0-0); Immature Granulocytes Auto 0.04 Thou/mm3 (0.00-0.00); Lymphocytes # (Auto) 2.1 Thou/mm3 (1.0-4.8); Lymphocytes % (Auto) 36 % (10-50); Mean Corpuscular HGB Conc 36.2 g/dl (31.0-37.0); Mean Corpuscular Hemoglobin 30.2 pg (25.0-35.0); Mean Corpuscular Volume 83 fL (80-100); Monocytes # (Auto) 0.6 Thou/mm3 (0.0-0.8); Monocytes % (Auto) 10 % (0-12); Neutrophils % (Auto) 51 % (37-80); Nucleated Red Blood Cell % 0 /100 WBC (0); Platelet Count 268 Thou/mm3 (140-440); RDW Standard Deviation 38.2 fL (35.1-43.9); Red Blood Count 6.13 Miln/mm3 (4.50-5.90)
[2025-04-23 14:11] LABS: B-Type Natriuretic Peptide < 20 pg/mL (0-100)
[2025-04-23 14:12] LABS: Alanine Aminotransferase 25 U/L (10-49); Albumin, Serum 4.6 gm/dL (3.5-5.0); Albumin/Globulin Ratio 2.1 (1.2-2.2); Alkaline Phosphatase 44 U/L (46-116); Anion Gap 10 (7-16); Aspartate Amino Transferase 25 U/L (0-34); BUN/Creatinine Ratio 7 Ratio (12-20); Bilirubin,Total 0.4 mg/dL (0.3-1.2); Blood Urea Nitrogen 8 mg/dL (9-23); Calcium 8.7 mg/dL (8.3-10.6); Calcium (Corrected) 8.7 mg/dL (8.5-10.1); Carbon Dioxide 26.7 mMol/L (20.0-31.0); Chloride 106 mMol/L (98-107); Creatinine (Component) 1.1 mg/dL (0.6-1.3); Estimated Creatinine Clearance 102.3 mL/min (>60); Globulin 2.2 gm/dL (2.3-3.5); Glucose 92 mg/dL (74-106); Osmolality,Calculated 283 (275-295); Potassium 4.3 mMol/L (3.4-5.1); Sodium 143 mMol/L (136-145); Total Protein 6.8 gm/dL (5.7-8.2); Troponin I < 0.002 ng/mL (0.0-0.045); eGFR > 60 See Note
--- NOTE | 2025-04-23 14:23 | PC.CC ---
Addendum entered by Shanae Shah 04/23/25 15:05: ASW searched for pt again, and he had returned and was placed in RME 4. [employer] Attendant provided pt with local MH serivces and MH services with [facility]. Pt was receptive and stated he will self refer. Original Note: ASW attempted to meet with pt and to provide him community resources for mental health concerns, but pt had eloped.
--- NOTE | 2025-04-23 15:05 | PD.EDARRY ---
ED Arrhythmia Palp. RME/HPI General Chief Complaint: Arrhythmia/Palpitations Stated Complaint: RACING HEART AND HARD TO BREATHE Time Seen by Provider: 04/23/25 12:50 Arrival date/time: 04/23/25 12:43 This is a 40-year-old male that comes into the emergency room with complaints of chest pain. Patient states that randomly his heart rate goes high. Patient states the only way to stop his heart rate from going high is drinking alcohol. Patient states he has been drinking about 15 beers a day. Patient states he is not an alcoholic but he has been doing this for the past 4 days. Patient's last drink was this morning. Patient states he has been self treating at home with alcohol when his heart rate goes up. Patient reports that he does have anxiety and [facility] Patient denies any suicidal homicidal ideation no hallucination no delusion Mode of arrival: ambulatory Limitations: no limitations RME / HPI RME / HPI narrative: 04/23/25 12:43 This is a 40-year-old male that comes into the emergency room with complaints of chest pain. Patient states that randomly his heart rate goes high. Patient states the only way to stop his heart rate from going high is drinking alcohol. Patient states he has been drinking about 15 beers a day. Patient states he is not an alcoholic but he has been doing this for the past 4 days. Patient's last drink was this morning. Patient states he has been self treating at home with alcohol when his heart rate goes up. Patient reports that he does have anxiety and [facility]. Patient states that he wants help to get off the alcohol. But he thinks there is something going on with his heart. I spoke to him at length and he wants to stop drinking. I offered him to see the social services counselor but he thinks that seeing the social services counselor means that were going to make him a 5150. I let him know this is not the case. Patient is not describing homicidal suicidal ideations. Patient was just seen here a couple days ago for abdominal pain. I have greeted and performed a focused initial assessment of this patient. Initial appropriate labs ordered at this time. A comprehensive ED assessment and evaluation of the patient and analysis of all test and completion of medical decision making process will be conducted by additional ED provider. Related Data Home Medications ?Medication ?Instructions ?Recorded ?Confirmed omeprazole 40 mg capsule,delayed 40 mg PO BID 09/25/24 09/25/24 release Previous Rx's ?Medication ?Instructions ?Recorded ibuprofen 800 mg tablet 800 mg PO TID PRN pain #30 tabs 11/28/24 hydroxyzine pamoate 25 mg capsule 25 mg PO BID PRN anxety #20 caps 04/23/25 Allergies Allergy/AdvReac Type Severity Reaction Status Date / Time No Known Allergies Allergy Verified 04/23/25 12:52 Review of Systems Review of Systems Systems Reviewed: All systems reviewed, normal except as documented Constitutional Constitutional: Reports system reviewed and no additional complaints, except as documented and Reports as per HPI Cardiovascular Cardiovascular: Reports system reviewed and no additional complaints, except as documented, Reports as per HPI, Denies acrocyanosis, Reports chest pain, Denies chest pain at rest, Denies chest pain with activity, Denies claudication, Denies diaphoresis, Reports dyspnea, Denies dyspnea on exertion, Denies edema, Denies irregular heart rhythm, Denies leg edema, Denies leg ulcers, Denies lightheadedness, Denies orthopnea, Denies palpitations, Denies paroxysmal nocturnal dyspnea, Denies pedal edema, Denies radiating jaw, neck or arm pain, Reports rapid heart rate, Denies slow heart rate and Denies syncope Respiratory Respiratory: Reports system reviewed and no additional complaints, except as documented, Reports dyspnea and Denies dyspnea on exertion Gastrointestinal Gastrointestinal: Reports system reviewed and no additional complaints, except as documented and Reports as per HPI Genitourinary Genitourinary: Reports system reviewed and no additional complaints, except as documented, Reports as per HPI and Denies change in libido Musculoskeletal Musculoskeletal: Reports system reviewed and no additional complaints, except as documented and Reports as per HPI Neurologic Neurologic: Reports system reviewed and no additional complaints, except as documented, Reports as per HPI, Denies behavioral changes, Denies confusion, Denies memory loss and Denies syncope Psychiatric Psychiatric: Reports system reviewed and no additional complaints, except as documented, Reports as per HPI, Denies abnormal sleep pattern, Denies anhedonia, Reports anxiety, Denies auditory hallucinations, Denies behavioral changes, Denies change in appetite, Denies change in libido, Denies confusion, Denies depression, Denies difficulty concentrating, Denies hallucinations, Denies homicidal ideation, Denies hopelessness, Denies irritability, Denies memory loss, Denies mood swings, Denies panic attacks, Denies paranoia, Denies suicidal ideation, Denies tactile hallucinations and Denies visual hallucinations Endocrine Endocrine: Denies change in libido and Denies palpitations Past Medical History Past Medical History CARDIAC: Negative Congestive Heart Failure RESPIRATORY: Negative Chronic Obstructive Pulmonary Disease (COPD) GASTROINTESTINAL: Positive Gastrointestinal Disorders and Gastroesophageal Reflux Disease GENITOURINARY: Negative Renal Disease ENDOCRINE: Negative Diabetes Mellitus Type 1 or Diabetes Mellitus Type 2 PSYCHO/SOCIAL: Positive Depression Social History SMOKING STATUS: Never smoker ED Exam General Limitations: Present no limitations General appearance: Present alert and in no apparent distress; Absent appears intoxicated, anxious, lethargic, obtunded, in distress, obese or cachectic Head Head exam: Present atraumatic Eye Eye exam: Present normal appearance, PERRL and EOMI ENT ENT exam: Present normal exam, normal oropharynx and mucous membranes moist Neck Neck exam: Present normal inspection, full ROM and trachea midline; Absent tenderness, meningismus, lymphadenopathy or thyromegaly Chest Chest inspection: Present normal inspection and symmetric chest wall rise; Absent tenderness, rash or abscess Respiratory Respiratory exam: Present normal lung sounds bilaterally; Absent respiratory distress, wheezes, stridor, accessory muscle use or prolonged expiratory phase Cardiovascular Cardiovascular exam: Present regular rate, normal rhythm and normal heart sounds; Absent bradycardia, tachycardia, systolic murmur or diastolic murmur Abdominal Exam Abdominal exam: Present soft and normal bowel sounds; Absent distention, tenderness, guarding, rebound, rigidity, diminished bowel sounds, hyperactive bowel sounds, hypoactive bowel sounds, organomegaly, trauma, incision, psoas sign, obturator sign, heel tap sign or tenderness at McBurney's Point Extremities Exam Extremities exam: Present normal inspection and full ROM Back Exam Back exam: Present normal inspection and full ROM Neurological Exam Neurological exam: Present alert, oriented X3, CN II-XII intact and normal gait; Absent motor sensory deficit or reflexes normal Psychiatric Psychiatric exam: Present normal affect, normal mood and anxious; Absent depressed, agitated, flat affect, manic, homicidal ideation or suicidal ideation Skin Skin exam: Present warm, dry, intact and normal color Course Quality Measures none Orders Category Date Time Status EKG (ED ONLY) *Do not use* NOW Care 04/23/25 12:56 Completed EKG (ED Only) Stat Exams 04/23/25 12:56 Draft XR chest 2V Stat Exams 04/23/25 13:39 Completed BNP [B-Type Natriuretic Peptide] Stat Lab 04/23/25 13:46 Completed CBC Stat Lab 04/23/25 13:46 Completed Comprehensive Metabolic Panel Stat Lab 04/23/25 13:46 Completed Drug Screen,Urine Stat Lab 04/23/25 13:39 Ordered Troponin I Stat Lab 04/23/25 13:46 Completed Urinalysis, C/S if Indicated Stat Lab 04/23/25 13:39 Ordered Vital Signs Vital signs: Vital Signs Temperature 98.0 F 04/23/25 12:57 Pulse Rate 107 H 04/23/25 12:57 Respiratory Rate 18 04/23/25 12:57 Blood Pressure 159/80 H 04/23/25 12:57 Pulse Oximetry (%) 96 04/23/25 12:57 Oxygen Delivery Method Room Air 04/23/25 12:57 Patient is afebrile mild tachycardic heart rate of 107 I rechecked the heart rate by myself and noted to be 95 at this time patient is calm no anxiety BP stable not hypoxic oxygen saturation is 96% in room air Arrhythmia/Palpitations MDM Narrative MDM Narrative:: This is a 40-year-old male that comes into the emergency room with complaints of chest pain. Patient states that randomly his heart rate goes high. Patient states the only way to stop his heart rate from going high is drinking alcohol. Patient states he has been drinking about 15 beers a day. Patient states he is not an alcoholic but he has been doing this for the past 4 days. Patient's last drink was this morning. Patient states he has been self treating at home with alcohol when his heart rate goes up. Patient reports that he does have anxiety and he usually sees the [facility] for his medical care. Patient states that he wants help to get off the alcohol. But he thinks there is something going on with his heart. I spoke to him at length and he wants to stop drinking. I offered him to see the social services counselor but he thinks that seeing the social services counselor means that were going to make him a 5150. I let him know this is not the case. Patient is not describing homicidal suicidal ideations. Patient was just seen here a couple days ago for abdominal pain physical examination patient is awake alert oriented not in distress nontoxic looking not tachycardic not tachypneic not hypoxic afebrile patient heart normal rate regular rhythm no murmur lungs sound is clear no crackles no rales no retraction no stridor psych no noted mild anxiety none homicidal none suicidal and no delusional blood test showed no leukocytosis no anemia kidney and liver function is normal no electrolyte imbalance patient troponin is negative EKG is normal sinus rhythm chest x-ray is also normal at this point I discussed with the patient his results he was advised to see a psychiatrist psychologist for his anxiety and alcohol addiction patient was also advised to see a medical affairs leader for chest pain and palpitation at this point patient states that the chest pain resolved the palpitation resolved while waiting in the lobby patient understood the discharge instruction and treatment at the time of exam no signs and symptoms of cardiopulmonary pathology patient palpitation is possible due to anxiety and alcohol addiction Patient was discharged with comfortable condition walking with stable gait. Patient verbalized no further complains explained diagnosis and answered patient question. Patient is comfortable with the proposed management plan including the need to follow up with his/her primary care physician and any specialist if applicable Discussed patient for any urgent condition or worsening sx, He/She needed to go to emergency room immediately or call 911. Patient acknowledge the responsibility to follow up as instructed and to monitor her/his symptoms. For any persistence of the symptoms for more than 3-5 days return precaution advised. Discussed the result of the test and was given printed discharge instruction Patient data External records reviewed:: [facility] previous records Clinical information provided by:: patient Social determinants that could affect healthcare access:: none Patient has the following chronic illnesses:: None How is presenting disease/condition affected by chronic disease/condition?: no chronic disease Evaluation data The following diagnostics were reviewed and interpreted by me:: lab results and radiology exam(s) Lab and/or radiology exams considered but not ordered:: Reviewed Interpretation Summary: Reviewed Medications / Prescriptions Medications or Prescriptions considered but not ordered:: None Medication administrations:: None Consultations Consultation(s) initiated? (list below): No Diagnosis Differential diagnosis arrhythmia/palpitations: palpitations, anxiety and sinus tachycardia Most likely diagnosis given after review of the tests above:: Anxiety palpitation chest pain Admission Indicated Admission indicated?: not indicated Explain why admission is indicated or not indicated:: Not indicated Admission Request Was there a request for admission?: No Admission Attestation Admission request attestation: Not indicated Disposition Plan Disposition Plan: Discharge Discharge Attestation Discharge Attestation: The patient and all family members were given an opportunity to ask questions and understood the discharge instructions. Discharge instructions specifically effects, indications for sooner follow up or return to the emergency department, and the expected course of current diagnosis. Patient condition: Stable Discharge Plan Plan Patient Disposition: HOME (Self Care) Patient condition on transfer: Stable Prescriptions/Referrals Prescriptions/Med Rec: New hydroxyzine pamoate 25 mg capsule 25 mg PO BID PRN (Reason: anxety) Qty: 20 0RF No Action omeprazole 40 mg capsule,delayed release(DR/EC) 40 mg PO BID Patient Comments: TAKE 1 CAPSULE BY MOUTH TWICE A DAY ibuprofen 800 mg tablet 800 mg PO TID PRN (Reason: pain) Qty: 30 0RF Referrals: No Primary/Family,Physician [Primary Care Provider] - In 1 week Problem List Clinical Impression: Palpitations, Anxiety, Alcohol abuse, Chest pain of unknown etiology Patient/Caregiver Discharge Instructions Education Materials: Alcohol Abuse Life After Combat, Alcohol Addiction, Addiction Ask These Questions, ED Anxiety Reaction, ED Chest Pain, Uncertain Cause, ED Palpitations Additional Instructions: Follow-up with your primary care physician in 2 days for reevaluation and to be referred to psychiatrist and psychologist for anxiety and alcohol abuse recurrence worsening symptoms or any emergent concern return to the emergency room immediately or call 911 it is very important to go to your primary care physician and to be referred to medical affairs leader for further evaluation and treatment of chest pain and palpitation for possible echocardiogram stress test and Holter monitor Print Language: Indonesian Stand Alone Forms: [employer] Award Info., Patient Portal Info Letter GISELLE/ANSON Supervising Physician GISELLE/ANSON Supervising Physician: dr [email or web address]
[2025-04-23 15:15] VITALS: BP 138/87; PULSE 90; RESP 18; TEMP 36.8; O2SAT 98
== END 2025-04-23 15:16 | disposition home or self-care (01) ==
PROVIDERS: Nurse Practitioner Family; Emergency Provider Family Medicine
DX: R00.2 Palpitations (principal); F41.9 Anxiety disorder, unspecified; F10.10 Alcohol abuse, uncomplicated; R94.31 Abnormal electrocardiogram [ECG] [EKG]
CPT/HCPCS: 36415; 71046; 80053; 80307; 81001; 83880; 84484; 85025; 93005; 99283